=== PATIENT | male | born 1975 | race Caucasian/White ===

== ENCOUNTER 2016-12-28 19:20 | Emergency (ER) | payer BC ==
[2016-12-28 19:30] VITALS: BP 138/82; PULSE 67; RESP 18; TEMP 97.7
[2016-12-28] MEDS ORDERED: CEPHALEXIN 500MG STARTER PACK 4 CAP BTL PO STA (20:41)
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
[2016-12-28] MEDS ORDERED: DIPH,PERTUS(ACELL)TETVAC-LF 0.5 ML VIAL IM ONE (20:47)
== END 2016-12-28 21:23 | disposition home or self-care (01) ==
LOC: EC 19:20
DX: S01.111A Laceration without foreign body of right eyelid and periocular area, initial encounter (principal); S50.311A Abrasion of right elbow, initial encounter; S60.511A Abrasion of right hand, initial encounter; S40.211A Abrasion of right shoulder, initial encounter; Z23 Encounter for immunization; F90.9 Attention-deficit hyperactivity disorder, unspecified type; Z79.899 Other long term (current) drug therapy; W05.2XXA Fall from non-moving motorized mobility scooter, initial encounter; Y92.009 Unspecified place in unspecified non-institutional (private) residence as the place of occurrence of the external cause
CPT/HCPCS: 12011; 90471; 90715; 99283